=== PATIENT | female | born 1955 | race Asian ===

== ENCOUNTER → 2019-11-06 17:54 | Outpatient (CLI) | payer BC ==
[2014-01-23 12:22] VITALS: BMI 25.0
[~2019-11-06 17:54] MED LIST: ANASTROZOLE1 MG PO
== END | disposition home or self-care (01) ==
LOC: D.LABREF 17:54
PROVIDERS: ATTEND Family Medicine
DX: J11.1 Influenza due to unidentified influenza virus with other respiratory manifestations (principal); R50.9 Fever, unspecified

== ENCOUNTER → 2019-12-06 11:41 | Outpatient (CLI) | payer BC ==
[2014-01-23 12:22] VITALS: BMI 25.0
[2019-12-06 12:26] LABS: BASOPHILS 0.2 % (0-2); EOSINOPHILS 1.4 % (0-7); HEMATOCRIT 40.8 % (36.0-48.0); HEMOGLOBIN 13.5 g/dL (12-16); IMMATURE GRANULOCYTES 0.7 % (0-5); LYMPHOCYTES 32.1 % (15-50); MCH 28.3 pg (26.0-34.0); MCHC 33.1 g/dL (31.0-37.0); MCV 85.5 fL (80.0-100.0); MEAN PLATELET VOLUME 9.2 fL (7.4-10.4); NEUTROPHILS 58.6 % (40-80); PLATELET COUNT 303 10x3/uL (130-400); RBC 4.77 10x6/uL (4.00-5.40); RDW 13.6 % (11.5-14.5); WBC 9.3 10x3/uL (4.8-10.8)
[2019-12-06 12:51] LABS: ALBUMIN 3.6 g/dL (3.4-5.0); ALKALINE PHOSPHATASE 103 U/L (30-120); ALT (SGPT) 39 U/L (10-68); BILIRUBIN - TOTAL 0.32 mg/dL (0.2-1.3); CALC OSMOLALITY 278 mosm/kg (275-300); CARBON DIOXIDE 28.7 mmol/L (21.0-32.0); CHLORIDE - SERUM 104 mmol/L (98-107); CHOL - HDL RATIO 5.4 ratio (2.3-4.1); CHOLESTEROL, TOTAL 225 mg/dL (0-200); CREATININE - SERUM 0.8 mg/dL (0.6-1.3); GLUCOSE 142 mg/dL (74-106); HDL CHOLESTEROL 42 mg/dL (32-96); POTASSIUM - SERUM 3.2 mmol/L (3.5-5.1); PROTEIN - SERUM 7.6 g/dL (6.4-8.2); SODIUM 140 mmol/L (136-145); UREA NITROGEN 8 mg/dL (7-18); eGFR NON AFRICAN AMERICAN 76 mL/min (90-120)
[2019-12-06 12:52] LABS: TRIGLYCERIDE 509 mg/dL (30-200)
[2019-12-06 13:23] LABS: THYROID STIMULATING HORMONE 1.84 uIU/mL (0.36-3.74)
== END | disposition home or self-care (01) ==
LOC: D.LAB 11:41
PROVIDERS: ATTEND Family Medicine
DX: Z00.00 Encounter for general adult medical examination without abnormal findings (principal)